=== PATIENT | male | born 1955 | race Caucasian/White ===

== ENCOUNTER 2021-08-28 00:21 | Emergency (ER) | payer MEDICARE, OTHER, SELFPAY ==
[2021-08-28] VITALS (8 sets, daily range): BP systolic 111–128; BP diastolic 71–83; PULSE 68–90; RESP 22–29; TEMP 36.8; O2SAT 84–96; BMI 28.0
--- NOTE | 2021-08-28 00:33 | PC.NURSE ---
patient needed to use restroom. patient refused to use urinal at bedside. Patient was advised his blood pressure was on the lower end of normal by EMS. Patient refused to allow staff to take vital signs before using restroom. patient walked to restroom and had syncopal episode in restroom doorway and was assisted to floor by staff. patient was then lifted to by staff to stretcher after pulse and breathing were checked. Dr. Lamar was advised and was at bedside evaluating patient. Vital signs were taken and patient denies injuries.
--- NOTE | 2021-08-28 00:40 | ECG_ITS ---
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: : 1955 Requested By: Greg Armstrong Order Number: [id number] Linnette MD: CARA CHAUHAN Measurements Intervals [place] Rate: 66 P: 19 WI: 223 QRS: -48 QRSD: 117 T: 102 QT: 452 QTc: 476 Interpretive Statements SINUS RHYTHM WITH FIRST DEGREE AV BLOCK LEFT ANTERIOR FASCICULAR BLOCK [QRS AXIS <= -45, QR IN I, RS IN II] POSSIBLE LEFT VENTRICULAR HYPERTROPHY [VOLTAGE CRITERIA PLUS LAE OR QRS WIDENING] POSSIBLE ANTERIOR MYOCARDIAL INFARCTION , OF INDETERMINATE AGE [30 ms Q WAVE IN V3/V4, OR R < 0.2 mV IN V4] INTERPRETATION BASED ON A DEFAULT AGE OF 40 YEARS No previous ECG available for comparison Electronically Signed On 08-29-2021 20:22:35 CDT by CARA CHAUHAN [id number]
--- NOTE | 2021-08-28 00:40 | XRR_ITS ---
PROCEDURE INFORMATION: Exam: XR Chest Exam date and time: 08/28/2021 12:40 AM Age: 66 years old Clinical indication: Pain; Chest pressure; Additional info: Cp - chest pain TECHNIQUE: Imaging protocol: XR of the chest. Views: 1 view. COMPARISON: No relevant prior studies available. FINDINGS: Lungs: Strandy and hazy opacities are seen in the left lower lobe compatible with a left lower lobe pneumonia. Pleural spaces: Unremarkable. No pleural effusion. No pneumothorax. Heart/Mediastinum: Unremarkable. No cardiomegaly. Bones/joints: Unremarkable. XR/XR chest 1V portable [id number] IMPRESSION: Strandy and hazy opacities in the left lower lobe compatible with left lower lobe pneumonia.
[2021-08-28 00:55] LABS: Basophils # 0.1 10^3/uL (0.0-0.1); Basophils % 0.7 %; Eosinophils # 0.3 10^3/uL (0.0-0.8); Eosinophils % 2.4 %; Hematocrit 43.3 % (42.0-52.0); Hemoglobin 14.8 g/dL (11.7-16.6); Lymphocytes # 2.3 10^3/uL (0.8-4.8); Lymphocytes % 21.8 %; Mean Corpuscular HGB Conc 34.2 g/dL (30.0-36.0); Mean Corpuscular Hemoglobin 30.1 pg (28.0-34.0); Mean Corpuscular Volume 88.2 fl (80-94); Mean Platelet Volume 10.5 fL (7.4-10.4); Monocytes # 0.6 10^3/uL (0.2-0.9); Monocytes % 5.6 %; Neutrophils # 7.41 10^3/uL (1.8-7.7); Neutrophils % 69.1 %; Nucleated Red Blood Cells % 0 %; Platelet Count 248 10^3/cmm (130-400); Red Blood Count 4.91 10^6/uL (4.1-5.3); Red Cell Distribution Width 12.9 % (12.1-15.1); White Blood Count 10.7 10^3/uL (4.0-10.0)
[2021-08-28] MEDS: morphine 4 mg/mL SDV 1 mL IVP ×3 (00:58→04:39)
[2021-08-28] MEDS: ondansetron 2 mg/ML SDV 2 mL 4 MG IVP (00:59)
[2021-08-28] MEDS: lidocaine 2% viscous 15 ML, aluminum-mag hydrox-simethicon 30 ML, sucralfate oral liq 1 GM PO (01:01)
[2021-08-28] MEDS: sodium chloride 0.9% 1,000 ML 999 ML IV (01:04)
[2021-08-28 01:07] LABS: Troponin(5th) Baseline 16 ng/L (0-15)
[2021-08-28 01:16] LABS: Alanine Aminotransferase 11 U/L (0-41); Albumin Level 3.9 g/dL (3.5-5.2); Alkaline Phosphatase 49 IU/L (40-130); Anion Gap 20.4 (5-19); Aspartate Amino Transferase 16 U/L (0-40); Blood Urea Nitrogen 16 mg/dL (8-23); Calcium 8.7 mg/dL (8.5-10.5); Carbon Dioxide 21 mmol/L (22-29); Chloride 95 mmol/L (98-107); Creatine Phosphokinase 160 U/L (39-308); Globulin 2.6 g/dL (1.3-4.6); Glomerular Filtration Rate 74.8 mL/min (90-130); Glucose 99 mg/dL (65-115); Lipase 29 U/L (13-60); NT Pro B Type Natriuretic Pept 61 pg/mL (0-125); Osmolality Calculated 277 mOsm/kg (285-295); Potassium 3.4 mmol/L (3.5-5.1); Sodium 133 mmol/L (136-145); Total Bilirubin 0.6 mg/dL (0.15-1.2); Total Protein 6.5 g/dL (6.6-8.7)
[2021-08-28 01:32] LABS: INR 1.04 (0.8-1.2)
[2021-08-28 01:35] LABS: D Dimer 1.77 ug/mIFEU (0-0.59)
--- NOTE | 2021-08-28 01:43 | CTR_ITS ---
PROCEDURE INFORMATION: Exam: CTA Chest With Contrast Exam date and time: 08/28/2021 1:43 AM Age: 66 years old Clinical indication: Angina and shortness of breath; Additional info: Cp TECHNIQUE: Imaging protocol: Computed tomographic angiography of the chest with contrast. 3D rendering (Not supervised by radiologist): MIP and/or 3D reconstructed images were created by the technologist. Radiation optimization: All CT scans at this facility use at least one of these dose optimization techniques: automated exposure control; mA and/or kV adjustment per patient size (includes targeted exams where dose is matched to clinical indication); or iterative reconstruction. Contrast material: OMNI 350; Contrast volume: 95 ml; Contrast route: INTRAVENOUS (IV); COMPARISON: CR (CHEST, ) 08/28/2021 12:57 AM RADIATION DOSE METRICS: Total DLP (mGy-cm): 1051.8 FINDINGS: Pulmonary arteries: Normal. No pulmonary emboli. Aorta: Unremarkable. No aortic aneurysm. No aortic dissection. Lungs: See Pleural spaces finding. Pleural spaces: There is a small left pleural effusion. There are patchy and hazy opacities superimposed over the pleural effusion likely representing atelectasis. A left basilar pneumonia cannot be excluded as well. Strandy opacities are seen in the lung bases bilaterally that likely represents atelectasis. Heart: Unremarkable. No cardiomegaly. No pericardial effusion. Mediastinal space: There is pneumomediastinum seen within the posterior mediastinum. Some subdiaphragmatic gas densities are also seen adjacent to the gastric cardia Lymph nodes: Unremarkable. No enlarged lymph nodes. Diaphragm: There is a hiatal hernia present measuring 9.7 cm transverse dimension. It contains a portion of the proximal stomach. Gallbladder and bile ducts: There are numerous gallstones present. Bones/joints: Unremarkable. No acute fracture. Soft tissues: Unremarkable. CT/CT angio chest PE protcl [id number] IMPRESSION: 1. There is no evidence for pulmonary emboli. 2. There is pneumomediastinum seen in the posterior mediastinum with subdiaphragmatic gas densities seen adjacent to the gastric cardia on the left. The source is indeterminate. 3. There is a small left pleural effusion. 4. Strandy and hazy opacities are seen superimposed over the pleural effusion possibly representing atelectasis although left basilar pneumonia cannot be excluded. 5. Strandy opacities are seen in the lung bases bilaterally likely representing atelectasis. 6. There is a moderate hiatal hernia present measuring 9.7 cm transverse dimension containing a portion of the proximal stomach. Radiation Dose CTDIVOL = (mGy): DLP = 1051.8 (mGy-cm)
[2021-08-28] MEDS: iohexol 350 mg/mL 100 mL Btl IV (02:04)
--- NOTE | 2021-08-28 02:36 | W.ED.CHESTPA ---
HPI - Chest Pain General: Chief Complaint: Chest Pain Stated Complaint: SHARP CHEST PAIN Time Seen by Provider: 08/28/21 00:28 History of Present Illness: HPI narrative: 66-year-old male with no prior history of coronary disease. He presents with sudden onset sharp chest pain and mid back pain this evening while sitting. He was at rest. He is not had pain like this before. No fever. No cough. He had some shortness of breath with it. No nausea. He called an ambulance. He was given fentanyl on the way here as well as nitroglycerin without significant relief. On arrival, he insisted on getting up to go to the restroom, and without assistance. He fell after having a near syncopal episode in doing so. MD complaint: chest pain Pertinent past history: other Onset (ago): hour(s) Timing of current episode: constant Prior episodes: No Onset: during rest Pain location: substernal Pain radiation: back Severity: severe Associated symptoms: Reports dyspnea and nausea; Deny abdominal pain, fever(s), leg edema, palpitations or vomiting Treatment prior to arrival: aspirin and nitroglycerin Review of Systems Const: Denies: fever(s) Eyes: Denies: change in vision Card: Reports: chest pain; Denies: palpitations or edema Resp: Reports: dyspnea GI: Reports: nausea; Denies: abdominal pain or vomiting Neuro: Reports: headache(s) [facility] ED PFSH: Medical History (Updated 08/28/21 @ 04:18 by Greg Lamar DO) Alcohol dependence, in remission Schizoaffective disorder, bipolar type Physical Exam Const: GENERAL APPEARANCE: well developed ORIENTATION/CONSCIOUSNESS: Yes oriented to person, Yes oriented to place and Yes oriented to time HENMT: COMMON NORMALS: normocephalic, external ears normal and Normal external nose present HEAD & SCALP: normocephalic FACE & SINUS: normal facial exam NOSE: Normal external nose present and No nasal discharge present EXTERNAL EAR: Yes external ears normal MOUTH: tongue normal TEETH & GINGIVA: no abnormal tooth and associated gingiva THROAT: posterior oropharynx normal; no peritonsillar mass Eye: COMMON NORMALS: Equal, round and reactive pupils present, EOMs intact bilaterally and conjunctivae normal EYELID: eyelids normal CONJUNCTIVA: Yes conjunctivae normal PUPIL: Yes Equal, round and reactive pupils present Neck/C-Spine: COMMON NORMALS: full ROM GENERAL: No tracheal deviation CERVICAL SPINE: Yes normal cervical lordosis and No Cervical spine tenderness Chest: COMMONS NORMALS: normal inspection of the chest CHEST: No tenderness Resp: COMMON NORMALS: clear to auscultation bilaterally EFFORT & INSPECTION: No tachypneic, No respiratory distress, No retractions, No uses accessory muscles and No tracheal deviation AUSCULTATION: clear to auscultation bilaterally, no rhonchi, no wheezes and lung sounds not diminished Cardio: COMMON NORMALS: regular rate and regular rhythm RATE: regular rate RHYTHM: regular rhythm HEART SOUNDS: no murmurs PERIPHERAL PULSES: radial pulses present GI: INSPECTION: No abdominal distension AUSCULTATION: No Hyperactive bowel sounds present and No Hypoactive bowel sounds present PALPATION: Yes Guarding due to palpation present (GI) and No Rigid due to palpation PERCUSSION: no dullness to percussion and no tympanic to percussion Neuro: SENSORIUM/ORIENTATION: Yes oriented to person, Yes oriented to place and Yes oriented to time Psych: COMMON NORMALS: mental status grossly normal Skin: COMMON NORMALS: no rashes or lesions noted GENERAL SKIN EXAM: no rashes or lesions noted Course Vital Signs: Vital signs: Vital Signs Temperature 98.2 F 08/28/21 00:30 Pulse Rate 83 08/28/21 01:45 Respiratory Rate 28 H 08/28/21 01:45 Blood Pressure 128/73 08/28/21 01:43 Pulse Oximetry 87 L 08/28/21 00:32 MDM - Chest Pain MDM Narrative: Medical decision making narrative: 66-year-old male with chest pain and upper back pain. He says he is not overly short of breath, but he is hypoxic. He is on 5 L now satting 93 to 94%. Blood pressure 103/75, heart rate 93. Respirations 22. He is afebrile. White blood cell count is 10.7. Hemoglobin 14.8. Troponin minimally elevated and did not rise 2 hours. EKG shows a sinus rhythm with some T wave flattening in the lateral leads. No ST depression or elevation. D-dimer 1.77. CTA does not show a PE. Does show a right small pleural effusion, pneumomediastinum, and what appears to be some air at the gastroesophageal junction suspicious for a small Boerhaave type rupture. He is placed on broad-spectrum antibiotics. We have no cardiothoracic surgery at this institution [facility] do not have any ICU beds. He was transferred directly [facility] ER [facility]. Lab Data: Labs: Lab Results 08/27/21 08/27/21 08/27/21 23:20 23:20 23:20 WBC 10.7 10^3/uL H 10 ^3/uL (4.0-10.0) RBC 4.91 10^6/uL 10^6 /uL (4.1-5.3) Hgb 14.8 g/dL g/dL (11.7-16.6) Hct 43.3 % % (42.0-52.0) MCV 88.2 fl fl (80-94) MCH 30.1 pg pg (28.0-34.0) MCHC 34.2 g/dL g/dL (30.0-36.0) RDW 12.9 % % (12.1-15.1) Plt Count 248 10^3/cmm 10^3 /cmm (130-400) MPV 10.5 fL H fL (7.4-10.4) Neut % (Auto) 69.1 % % Lymph % (Auto) 21.8 % % Bond % (Auto) 5.6 % % Eos % (Auto) 2.4 % % Baso % (Auto) 0.7 % % Neut # (Auto) 7.41 10^3/uL 10^3 /uL (1.8-7.7) Lymph # (Auto) 2.3 10^3/uL 10^3/ uL (0.8-4.8) Bond # (Auto) 0.6 10^3/uL 10^3/ uL (0.2-0.9) Eos # (Auto) 0.3 10^3/uL 10^3/ uL (0.0-0.8) Baso # (Auto) 0.1 10^3/uL 10^3/ uL (0.0-0.1) Nucleated RBC % (a uto) 0 % % Nucleated RBCs # 0.0 /100WBC /100W BC PT INR APTT D-Dimer Sodium 133 mmol/L L mmol /L (136-145) Potassium 3.4 mmol/L L mmol /L (3.5-5.1) Chloride 95 mmol/L L mmol/ L (98-107) Carbon Dioxide 21 mmol/L L mmol/ L (22-29) Anion Gap 20.4 H (5-19) BUN 16 mg/dL mg/dL (8-23) Creatinine 1.0 mg/dL mg/dL (0.7-1.2) GFR Calculation 74.8 mL/min L mL/ min (90-130) Glucose 99 mg/dL mg/dL (65-115) Calculated Osmolal ity 277 mOsm/kg L mOs m/kg (285-295) Calcium 8.7 mg/dL mg/dL (8.5-10.5) Total Bilirubin 0.6 mg/dL mg/dL (0.15-1.2) AST 16 U/L U/L (0-40) ALT 11 U/L U/L (0-41) Alkaline Phosphata se 49 IU/L IU/L (40-130) Creatine Kinase 160 U/L U/L (39-308) Troponin T Baselin e 16 ng/L H ng/L (0-15) Troponin T 120 Min [place] Troponin T NT-Pro-B Natriuret Pep 61 pg/mL pg/mL (0-125) Total Protein 6.5 g/dL L g/dL (6.6-8.7) Albumin 3.9 g/dL g/dL (3.5-5.2) Globulin 2.6 g/dL g/dL (1.3-4.6) Lipase 29 U/L U/L (13-60) 08/28/21 08/28/21 00:57 00:57 WBC RBC Hgb Hct MCV MCH MCHC RDW Plt Count MPV Neut % (Auto) Lymph % (Auto) Bond % (Auto) Eos % (Auto) Baso % (Auto) Neut # (Auto) Lymph # (Auto) Bond # (Auto) Eos # (Auto) Baso # (Auto) Nucleated RBC % (a uto) Nucleated RBCs # PT 13.90 SECONDS SEC ONDS (12.1-14.9) INR 1.04 (0.8-1.2) APTT 28.0 SECONDS SECO NDS (23.9-36.7) D-Dimer 1.77 ug/mIFEU H u g/mIFEU (0-0.59) Sodium Potassium Chloride Carbon Dioxide Anion Gap BUN Creatinine GFR Calculation Glucose Calculated Osmolal ity Calcium Total Bilirubin AST ALT Alkaline Phosphata se Creatine Kinase Troponin T Baselin e Troponin T 120 Min [place] 15.60 ng/L H ng/L (0-15) Delta Troponin T -0.40 ABS# L ABS# (0-10) NT-Pro-B Natriuret Pep Total Protein Albumin Globulin Lipase Critical Care Time Critical Care Time: Critical Care Time: Yes Total Critical Care Time: 40 Attestation: This case had a high probability of a clinically significant, sudden, or life threatening deterioration of this patient's condition which required my full and direct attention, intervention and personal management. Discharge Plan Discharge Patient Disposition: Xfer Short-Term Hosp Clinical Impression: Pneumomediastinum, Boerhaave syndrome Condition: Serious Referrals: Ivana Marshall [Primary Care Provider] - Coding Level of Care Code ED Gas Combustion Engineer for Chg Fwd Exam Comprehensive
--- NOTE | 2021-08-28 02:40 | ECG_ITS ---
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1955 Requested By: Greg Armstrong Order Number: [id number] Reading MD: CARA CHAUHAN Measurements Intervals [place] Rate: 92 P: 4 IA: 198 QRS: -49 QRSD: 113 T: 120 QT: 360 QTc: 446 Interpretive Statements SINUS RHYTHM LEFT ANTERIOR FASCICULAR BLOCK [QRS AXIS <= -45, QR IN I, RS IN II] POSSIBLE ANTERIOR MYOCARDIAL INFARCTION , PROBABLY OLD [30 ms Q WAVE IN V3/V4, OR R < 0.2 mV IN V4] MODERATE T-WAVE ABNORMALITY, CONSIDER LATERAL ISCHEMIA [-0.1+ mV T-WAVE IN I/aVL/V5/V6] No previous ECG available for comparison Electronically Signed On 08-29-2021 20:24:39 CDT by CARA CHAUHAN [email or web address] [email or web address] [id number]
[2021-08-28] MEDS: piperacillin-tazobactam 4.5 GM in sodium chloride 0.9% (plus) 50 ML IV (03:55)
[2021-08-28] MEDS: fluconazole premix 400 MG/200 ML PIGGYBACK 200 MG IV (04:23)
[2021-08-28] MEDS: pantoprazole 40 mg SDV 80 MG IVP (04:38)
== END 2021-08-28 04:43 | disposition short-term general hospital (02) ==
PROVIDERS: Emergency Provider Emergency Medicine; PCP Nurse Practitioner Family
DX: J98.2 Interstitial emphysema (principal); K22.3 Perforation of esophagus
CPT/HCPCS: 71045; 71275; 80053; 82550; 83690; 83880; 84484; 85025; 85378; 85610; 85730; 93005; 96365; 96367; 96375; 96376; 99291; 99292; C9113; J1450; J2270; J2405; J2543; J7030; Q9967